=== PATIENT | female | born 1985 | race Caucasian/White ===

== ENCOUNTER 2017-09-25 02:15 | Emergency (ER) | payer OTHER ==
[~2017-09-25] VITALS: Ht 172.7 cm; Wt 90.8 kg
[~2017-09-25 02:15] MED LIST: BACLOFEN10 MG PO; CLINDAMYCIN HC300 MG PO; CYMBALTA60 MG PO; FLEXERIL5 MG PO; LAMICTAL100 MG PO; LIDODERM 5% P1 PATCH TD; LYRICA200 MG PO; MAGNESIUM400 M1 PO; TRAMADOL HCL50 MG PO; VICODIN 5-3001 EACH PO; XANAX0.25 MG PO
[2017-09-25 03:02] LABS: BASOPHIL (%) 0.6 % (0-1); BASOPHIL COUNT 0.1 K/uL (0-0.1); EOSINOPHIL COUNT 0.5 K/uL (0-0.3); HEMATOCRIT 37.4 % (36.0-46.0); HEMOGLOBIN 12.8 G/DL (11.9-15.5); IMMATURE GRANULOCYTE (%) 0.2 % (0.0-0.7); LYMPHOCYTE (%) 32.3 % (15-42); LYMPHOCYTE COUNT 4.1 K/uL (1.0-2.8); MCH 30.5 PG (29.0-34.0); MCHC 34.2 G/DL (30.0-36.0); MONOCYTE (%) 8.8 % (3-12); MONOCYTE COUNT 1.1 K/uL (0-0.8); NEUTROPHIL (%) 54.1 % (45-76); NEUTROPHIL COUNT 6.8 K/uL (1.8-6.4); PLATELET COUNT 333 K/uL (156-360); RBC DIS.WIDTH-CV 13.1 % (11.8-14.6); RBC DIS.WIDTH-SD 42.7 % (39-53); WHITE BLOOD COUNT 12.6 K/uL (4.1-10.2)
[2017-09-25 03:11] LABS: CHLORIDE 104 mEq/L (99-109); POTASSIUM 4.3 mEq/L (3.7-5.4); SODIUM 139 mEq/L (136-147)
[2017-09-25 03:13] LABS: GLUCOSE 89 mg/dL (70-99)
[2017-09-25 03:17] LABS: CREATININE 0.8 mg/dL (0.6-1.3); GFR ESTIMATE (CALCULATED) > 59 mL/min/
[2017-09-25 03:18] LABS: UREA NITROGEN (BUN) 17 mg/dL (9-23)
[2017-09-25] MEDS ORDERED: MOTRIN800 MG PO (04:35)
[2017-09-25] MEDS ORDERED: ULTRAM50 MG PO (04:35)
[2017-09-25] MEDS ORDERED: AUGMENTIN875 MG PO (04:35)
[2017-09-25 04:57] VITALS: BP 120/86
[2017-09-25] MEDS ORDERED: XANAX0.25 MG PO (18:26)
[2017-09-25] MEDS ORDERED: LAMICTAL200 MG PO (18:27)
[2017-09-25] MEDS ORDERED: LAMOTRIGINE25 MG PO (18:29)
[2017-09-25] MEDS ORDERED: ADDERALL15 MG PO (18:29)
[2017-09-25] MEDS ORDERED: IBUPROFEN800 MG PO (18:30)
[2017-09-25] MEDS ORDERED: FLUTICASONE P15.8 ML BOTH NARES (18:31)
[2017-09-25] MEDS ORDERED: VENTOLIN HFA18 GM IH (18:31)
== END 2017-09-25 04:58 | disposition home or self-care (01) ==
LOC: EME 02:15
PROVIDERS: Emergency Medicine
DX: L03.211 Cellulitis of face (principal); J02.9 Acute pharyngitis, unspecified; F90.9 Attention-deficit hyperactivity disorder, unspecified type; F17.200 Nicotine dependence, unspecified, uncomplicated
CPT/HCPCS: 70481; 70491; 80048; 85025; 87651 90; 99281; 99284; J1200; J7030

== ENCOUNTER 2017-09-25 16:59 | Inpatient (IN) | payer OTHER ==
[~2017-09-25] VITALS: Ht 170.2 cm; Wt 88.8 kg
[~2017-09-25 16:59] MED LIST changes: +AUGMENTIN875 MG PO; +MOTRIN800 MG PO; +ULTRAM50 MG PO
[2017-09-25] MEDS ORDERED: XANAX0.25 MG PO (18:26)
[2017-09-25] MEDS ORDERED: LAMICTAL200 MG PO (18:27)
[2017-09-25] MEDS ORDERED: LAMOTRIGINE25 MG PO (18:29)
[2017-09-25] MEDS ORDERED: ADDERALL15 MG PO (18:29)
[2017-09-25] MEDS ORDERED: IBUPROFEN800 MG PO (18:30)
[2017-09-25] MEDS ORDERED: FLUTICASONE P15.8 ML BOTH NARES (18:31)
[2017-09-25] MEDS ORDERED: VENTOLIN HFA18 GM IH (18:31)
[2017-09-25 21:48] VITALS: BP 148/84
[2017-09-26 00:19] VITALS: BP 142/86
[2017-09-26 06:08] LABS: BASOPHIL (%) 0.9 % (0-1); BASOPHIL COUNT 0.1 K/uL (0-0.1); EOSINOPHIL (%) 8.7 % (0-5); EOSINOPHIL COUNT 0.7 K/uL (0-0.3); HEMATOCRIT 36.6 % (36.0-46.0); HEMOGLOBIN 12.4 G/DL (11.9-15.5); IMMATURE GRANULOCYTE (%) 0.1 % (0.0-0.7); LYMPHOCYTE (%) 45.4 % (15-42); LYMPHOCYTE COUNT 3.4 K/uL (1.0-2.8); MCH 30.6 PG (29.0-34.0); MCHC 33.9 G/DL (30.0-36.0); MCV 90.4 FL (83-99); MONOCYTE (%) 10.5 % (3-12); MONOCYTE COUNT 0.8 K/uL (0-0.8); NEUTROPHIL (%) 34.4 % (45-76); NEUTROPHIL COUNT 2.6 K/uL (1.8-6.4); PLATELET COUNT 314 K/uL (156-360); RBC DIS.WIDTH-CV 13.3 % (11.8-14.6); RBC DIS.WIDTH-SD 43.9 % (39-53); RED BLOOD COUNT 4.05 M/uL (3.80-5.20); WHITE BLOOD COUNT 7.5 K/uL (4.1-10.2)
[2017-09-26 06:27] LABS: CHLORIDE 106 MEQ/L (99-109); CREATININE 0.7 MG/DL (0.6-1.3); GFR ESTIMATE (CALCULATED) > 59 mL/min/; GLUCOSE 93 mg/dL (70-99); POTASSIUM 4.6 MEQ/L (3.7-5.4); SODIUM 137 MEQ/L (136-147); UREA NITROGEN (BUN) 11 mg/dL (9-23)
[2017-09-26 07:38] VITALS: BP 124/69
[2017-09-26 15:46] VITALS: BP 125/86
[2017-09-27] VITALS: BP 142/80
[2017-09-27 07:47] VITALS: BP 132/81
[2017-09-27] MEDS ORDERED: DOXYCYCLINE HY100 MG PO (12:32)
[2017-09-27] MEDS ORDERED: HIBICLENS118 ML TP (12:42)
[2017-09-27] MEDS ORDERED: BACTROBAN NASAL1 G1 BOTH NARES (12:43)
== END 2017-09-27 13:32 | disposition home or self-care (01) | DRG 603 ==
LOC: EME 16:59 → 5SOUTH 20:05 → EDOF 20:05 → ENRESERV 20:07 → 5SOUTH 21:32
PROVIDERS: Hospitalist
DX: L03.211 Cellulitis of face (principal); Z68.30 Body mass index [BMI] 30.0-30.9, adult; L03.213 Periorbital cellulitis; L02.01 Cutaneous abscess of face; E66.9 Obesity, unspecified; G40.909 Epilepsy, unspecified, not intractable, without status epilepticus; F17.210 Nicotine dependence, cigarettes, uncomplicated; B95.62 Methicillin resistant Staphylococcus aureus infection as the cause of diseases classified elsewhere
CPT/HCPCS: 70481; 70491; 80048; 85025; 87040; 87651 90; 99202; 99281; 99284; 99285; J0696; J1200; J1650; J7030